=== PATIENT | male | born 1975 | race Hispanic/Latino ===

== ENCOUNTER 2016-06-28 13:39 | Emergency (ER) | payer OTHER ==
[2016-06-28 13:57] VITALS: BMI 23.0
[2016-06-28 13:58] VITALS: BP 116/84; PULSE 55; RESP 15; TEMP 99.2; O2SAT 100
[2016-06-28] MEDS ORDERED: Alum-Mag Hydrox-Simethicone Susp (30 mL) PO STA (14:01)
[2016-06-28] MEDS ORDERED: Sodium Chloride 0.9% 1,000 ML IV STA (14:03)
--- NOTE | 2016-06-28 14:16 | ED PDOC ---
Arrival/HPI - General Historian: Patient - History of Present Illness Time/Duration: Prior to Arrival, 4-6 hours Symptom Onset: Gradual Symptom Course: Unchanged Severity Level: Moderate <Geronimo Ruvalcaba - Last Filed: 06/28/16 14:10> <ArleneLeona Ankit - Last Filed: 06/28/16 16:57> - General Chief Complaint: GI Problem Time Seen by Provider: 06/28/16 13:56 - History of Present Illness Narrative History of Present Illness (Text): 06/28/16 14:11 This is a 41 year old male with history notable for chronic back and neck pain managed with oxycodone 15mg TID presenting with nausea, vomiting, and abdominal pain x 1 day. The patient states that he woke this morning with nausea and then began having bilious non-bloody emetic episodes. The patient reports abdominal pain secondary to the vomiting. The patient has been seen multiple times for the same complaint. The patient denies fever, chills, shest pain, SOB , changes in bowel/bladder, and extremity weakness/paresthesias. (Geronimo Ruvalcaba) Past Medical History - Provider Review Nursing Documentation Reviewed: Yes - Travel History Have you recently traveled outside [place] w/in the past 3 mons?: No - Past History Past History: No Previous - Infectious Disease Hx of Infectious Diseases: None - Cardiac Hx Cardiac Disorders: No - Pulmonary Hx Respiratory Disorders: No - Neurological Hx Neurological Disorder: No - HEENT Hx HEENT Disorder: No - Renal Hx Renal Disorder: No - Endocrine/Metabolic Hx Endocrine Disorders: No - Hematological/Oncological Hx Blood Disorders: No - Integumentary Hx Dermatological Disorder: No - Musculoskeletal/Rheumatological Hx Musculoskeletal Disorders: Yes Hx Back Pain: Yes Other/Comment: HERNIATED DISC, C 4 AND C5 NECK CRUSH , PINCH NERVE - Gastrointestinal Hx Gastrointestinal Disorders: No - Genitourinary/Gynecological Hx Genitourinary Disorders: No - Psychiatric Hx Psychophysiologic Disorder: No Hx Substance Use: Yes (marijuana) <Geronimo Ruvalcaba - Last Filed: 06/28/16 14:10> Family/Social History - Physician Review Nursing Documentation Reviewed: Yes Family/Social History: No Known Family HX Smoking Status: Former Smoker Hx Alcohol Use: No Hx Substance Use: Yes (marijuana) <Geronimo Ruvalcaba - Last Filed: 06/28/16 14:10> Allergies/Home Meds <Geronimo Ruvalcaba - Last Filed: 06/28/16 14:10> <Leona Jacobs - Last Filed: 06/28/16 16:57> Allergies/Adverse Reactions: Allergies No Known Allergies Allergy (Verified 06/28/16 13:57) Home Medications: Home Meds Medication Instructions Recorded Confirmed Oxycodone HCl [Oxycontin] 15 mg PO TID 04/22/16 06/28/16 Ondansetron ODT [Zofran ODT] 4 mg PO PRN PRN 06/28/16 06/28/16 Review of Systems - Physician Review All systems were reviewed & negative as marked: Yes - Review of Systems Constitutional: absent: Fatigue, Fevers Eyes: absent: Vision Changes, Photophobia ENT: absent: Hearing Changes, Tinnitus Respiratory: absent: SOB, Cough Cardiovascular: absent: Chest Pain, Palpitations Gastrointestinal: Abdominal Pain, Nausea, Vomiting. absent: Stool Changes, Constipation, Diarrhea, Appetite Changes, Hematochezia, Hematemesis Genitourinary Male: absent: Dysuria, Frequency Musculoskeletal: Back Pain, Neck Pain. absent: Arthralgias Skin: absent: Rash, Pruritis Neurological: absent: Headache, Dizziness Endocrine: absent: Diaphoresis Hemo/Lymphatic: absent: Adenopathy Psychiatric: absent: Anxiety <Geronimo Ruvalcaba - Last Filed: 06/28/16 14:10> Physical Exam Vital Signs Reviewed: Yes Temperature: Afebrile Blood Pressure: Normal Pulse: Regular Respiratory Rate: Normal Appearance: Positive for: Well-Appearing, Non-Toxic, Comfortable Pain Distress: None Mental Status: Positive for: Alert and Oriented X 3 - Systems Exam Head: Present: Atraumatic, Normocephalic Pupils: Present: PERRL Extroacular Muscles: Present: EOMI Conjunctiva: Present: Normal Mouth: Present: Moist Mucous Membranes. No: Drooling Neck: Present: Normal Range of Motion. No: Meningeal Signs, JVD, Lymphadenopathy Respiratory/Chest: Present: Clear to Auscultation, Good Air Exchange. No: Respiratory Distress, Accessory Muscle Use Cardiovascular: Present: Regular Rate and Rhythm, Normal S1, S2. No: Murmurs Abdomen: Present: Tenderness (diffuse epigastric), Normal Bowel Sounds. No: Distention, Peritoneal Signs, Rebound, Guarding, McBurney's Point Tender, Rovsing's Sign Present, Feeding Tubes, Ostomy Tubes, Mass/Organomegaly Back: Present: Normal Inspection. No: CVA Tenderness Upper Extremity: Present: Normal Inspection, Normal ROM, NORMAL PULSES, Neurovascularly Intact. No: Cyanosis, Edema, Deformity Lower Extremity: Present: Normal Inspection, NORMAL PULSES, Normal ROM, Neurovascularly Intact. No: Edema, CALF TENDERNESS Neurological: Present: GCS=15, CN II-XII Intact, Speech Normal Skin: Present: Warm, Dry, Normal Color. No: Rashes Psychiatric: Present: Alert, Oriented x 3 <Geronimo Ruvalcaba - Last Filed: 06/28/16 14:10> Vital Signs Temp Pulse Resp BP Pulse Ox 06/28/16 13:57 99.2 F 55 L 15 116/84 100 Medical Decision Making Re-evaluation Time: 16:12 Reassessment Condition: Re-examined, Improved - Lab Interpretations I have reviewed the lab results: Yes Interpretation: No clinic. lab abnormalty - RAD Interpretation Roller Helper: ED Physician, Radiologist <Geronimo Ruvalcaba - Last Filed: 06/28/16 14:10> - Lab Interpretations I have reviewed the lab results: Yes <Leona Jacobs - Last Filed: 06/28/16 16:57> ED Course and Treatment: 06/28/16 14:18 Impression: This is a 41 year old male with history notable for chronic back and neck pain managed with oxycodone 15mg TID presenting with nausea, vomiting, and abdominal pain x 1 day. The patient appears comfortable in bed. The patient reports multiple issues of the same complaint in the past. Differential: Intractible N/V GERD PUD Constipation Opioid Use Plan: 1L NS Bolus CBC, CMP, Mag, Phos, Lipase CT Abd/Pelv IV contrast Reglan 10mg Maalox 30ml Pepcid 20mg Prior Visits: 04/22/16- Abdominal pain, nausea, vomiting (resolution with reglan) 04/25/16- Abdominal pain, nausea, vomiting (resolution with reglan)- CT negative for acute abdominal pathology Progress Note: Patient seen and examined at the bedside. The patient appears clinically stable. The patient has a basin at bedside, no vomitus. The patient will be treated symptomatically with reglan, pepcid, and maalox. The patient is pending CT abd/pelv with IV contrast. 06/28/16 14:36 Stool guiac negative. 06/28/16 16:29 Case discussed in detail over the phone with Dr. Galan. He recommended discontinuing reglan and using Zofran for nausea control. He recommended liquid diet with advancement as tolerated and follow up in his office next week. These recommendations were relayed to the patient. He is agreeable with the plan. The patient has not vomited, but remains nauseated at this point. The patient states that he has an appointment with Dr. Alexis this evening at 17: 30. The patient understands the recommendations and summarizes his understanding. The patient will be given 4mg IV zofran for nausea. The patient is agreeable with the disscharge plan. The patient is medically stable for discharge. (Geronimo Ruvalcaba) Patient seen and examined with resident. Came up with treatment and disposition plan with resident. The patient is a 41 year old male who comes into the emergency department for evaluation of abdominal pain associated with nausea and vomiting. Additional HPI details as noted by the resident. He has been seen in ED multiple times for same. On phsyical examination the patient has tenderness with palpation in the epigastric region. Labs, Urinalysis and Abdomen/Pelvis CT ordered to rule out GERD vs. PUD vs. constipation. Will give patient Maalox, Pepcid, Reglan and IV Fluid for symptom management. CT negative. Labs grossly normal. Patient is tolerating po. Dr. Galan (GI) was consulted. Patient had schedule an appoint to see Dr. Galan in the office later today. Patient in agreement with plan to discharged home and will go directly to Dr. Galan's office. Patient is stable for discharge. Patient was instructed to follow up with Dr. Mckeon as scheduled or return if symptoms worsen or new concerning symptoms arise. (Leona Jacobs) - Lab Interpretations Lab Results: 06/28/16 14:24 06/28/16 14:24 Lab Results 06/28/16 14:24: WBC 6.0, RBC 5.16, Hgb 15.4, Hct 43.5, MCV 84.3, MCH 29.8, MCHC 35.4, RDW 12.7, Plt Count 303, MPV 9.6, Gran % 85.2 H, Lymph % (Auto) 11.4 L, [place] % (Auto) 2.9, Eos % (Auto) 0.0 L, Baso % (Auto) 0.5, Gran # 5.08, Lymph # 0.7 L, [place] # 0.2, Eos # 0.0, Baso # 0.03, Sodium 142, Potassium 4.1, Chloride 103, Carbon Dioxide 28, Anion Gap 15, BUN 12, Creatinine 0.8, Est GFR ( Amer) > 60, Est GFR (Non-Af Amer) > 60, Random Glucose 137 H, Calcium 10.4, Phosphorus 2.6, Magnesium 1.9, Total Bilirubin 0.9, AST 33, ALT 27, Alkaline Phosphatase 63, Total Protein 8.6 H, Albumin 5.0 H, Globulin 3.6, Albumin/ Globulin Ratio 1.4, Lipase 95 06/28/16 14:24 06/28/16 14:24 Lab Results 06/28/16 14:24: WBC 6.0, RBC 5.16, Hgb 15.4, Hct 43.5, MCV 84.3, MCH 29.8, MCHC 35.4, RDW 12.7, Plt Count 303, MPV 9.6, Gran % 85.2 H, Lymph % (Auto) 11.4 L, [place] % (Auto) 2.9, Eos % (Auto) 0.0 L, Baso % (Auto) 0.5, Gran # 5.08, Lymph # 0.7 L, [place] # 0.2, Eos # 0.0, Baso # 0.03, Sodium 142, Potassium 4.1, Chloride 103, Carbon Dioxide 28, Anion Gap 15, BUN 12, Creatinine 0.8, Est GFR ( Amer) > 60, Est GFR (Non-Af Amer) > 60, Random Glucose 137 H, Calcium 10.4, Phosphorus 2.6, Magnesium 1.9, Total Bilirubin 0.9, AST 33, ALT 27, Alkaline Phosphatase 63, Total Protein 8.6 H, Albumin 5.0 H, Globulin 3.6, Albumin/ Globulin Ratio 1.4, Lipase 95 (PegGeronimo) - RAD Interpretation Narrative RAD Interpretations (Text): 06/28/16 16:37 PROCEDURE: CT Abdomen and Pelvis with contrast HISTORY: abdominal pain and vomiting COMPARISON: None. TECHNIQUE: Contrast dose: 100 cc of Omni 350 Radiation dose: Total exam DLP = 363 mGy-cm. FINDINGS: LOWER THORAX: Unremarkable. LIVER: Unremarkable. No gross lesion or ductal dilatation. GALLBLADDER AND BILE DUCTS: Unremarkable. PANCREAS: Unremarkable. No gross lesion or ductal dilatation. SPLEEN: Unremarkable. ADRENALS: Unremarkable. No mass. KIDNEYS AND URETERS: Unremarkable. No hydronephrosis. No solid mass. VASCULATURE: Unremarkable. No aortic aneurysm. BOWEL: Unremarkable. No obstruction. No gross mural thickening. APPENDIX: Normal appendix. PERITONEUM: Unremarkable. No free fluid. No free air. LYMPH NODES: Unremarkable. No enlarged lymph nodes. BLADDER: Unremarkable. REPRODUCTIVE: Unremarkable. BONES: No acute fracture. OTHER FINDINGS: None. IMPRESSION: No acute intra-abdominal findings (Geronimo Ruvalcaba) Radiology Orders: 06/28/16 14:01 ABDOMEN & PELVIS [ABD & PELVIS IV CONTRAST ONLY] [CT] Stat - Medication Orders Current Medication Orders: Ondansetron HCl (Zofran Inj) 4 mg IVP Q4H PRN PRN Reason: Nausea/Vomiting Discontinued Medications Al Hydrox/Mg Hydrox/Simethicone (Maalox Plus 30 Ml) 30 ml PO STAT STA Stop: 06/28/16 14:02 Last Admin: 06/28/16 14:22 Dose: 30 ML Famotidine (Pepcid) 20 mg IVP STAT STA Stop: 06/28/16 14:02 Last Admin: 06/28/16 14:22 Dose: 20 MG IVP Administration Document 06/28/16 14:22 [facility] (Rec: 06/28/16 14:22 [id number]) Charges for Administration # of IVP Administrations 1 Sodium Chloride (Sodium Chloride 0.9%) 1,000 mls @ 999 mls/hr IV .Q1H1M STA Stop: 06/28/16 15:03 Last Admin: 06/28/16 14:22 Dose: 999 MLS/HR eMAR Start Stop Document 06/28/16 14:22 [facility] (Rec: 06/28/16 14:22 [id number]) Intravenous Solution Start Date 06/28/16 Start Time 14:22 Iohexol (Omnipaque 350 100 Ml) Confirm Administered Dose 350 mg .ROUTE .STK-MED ONE Stop: 06/28/16 15:13 Metoclopramide HCl (Reglan) 10 mg IVP STAT STA Stop: 06/28/16 14:02 Last Admin: 06/28/16 14:22 Dose: 10 MG IVP Administration Document 06/28/16 14:22 JACQUES (Rec: 06/28/16 14:22 [id number]) Charges for Administration # of IVP Administrations 1 Disposition/Present on Arrival - Present on Arrival Any Indicators Present on Arrival: No History of DVT/PE: No History of Uncontrolled Diabetes: No Urinary Catheter: No History of Decub. Ulcer: No History Surgical Site Infection Following: None - Disposition Have Diagnosis and Disposition been Completed?: Yes Disposition Time: 14:11 Patient Plan: Discharge <Geronimo Ruvalcaba - Last Filed: 06/28/16 14:10> <Leona Jacobs - Last Filed: 06/28/16 16:57> - Disposition Diagnosis: Vomiting, Abdominal pain, Constipation Disposition: HOME/ ROUTINE Patient Problems: Current Active Problems Problem Status Diagnosed Abdominal pain Acute Constipation Acute Vomiting Acute Condition: FAIR Discharge Instructions (ExitCare): Acute Nausea and Vomiting (ED), Constipation (ED) Print Language: [place]ET[place]ESE Additional Instructions: 1.) Follow up with Dr. Galan (appointment tonight at 5:30pm) and next week as directed 2.) Maintain adequate hydration 3.) Liquid diet and advance as tolerated to soft foods 4.) 6 small meals daily 5.) follow up with PMD following DC 6.) If symptoms return, please return to the ED for evaluation Referrals: PCP,NO [Primary Care Provider] - Follow up with primary Viviana Galan MD [Medical Doctor] - Follow up with primary
[2016-06-28 14:24] LABS: ADD MANUAL DIFF? NO
[2016-06-28 14:30] LABS: BASO # 0.03 K/mm3 (0.0-2.0); BASO % 0.5 % (0.0-3.0); GRAN # 5.08 (1.4-6.5); GRAN % 85.2 % (50.0-68.0); HEMATOCRIT 43.5 % (42.0-52.0); LYMPH # 0.7 (1.2-3.4); LYMPH % 11.4 % (22.0-35.0); MEAN CELL VOLUME 84.3 fL (80.0-105.0); MEAN CORPUSCULAR HEMOGLOBIN 29.8 pg (25.0-35.0); MEAN CORPUSCULAR HGB CONC 35.4 g/dl (31.0-37.0); MEAN PLATELET VOLUME 9.6 fl (7.0-11.0); MONO # 0.2 (0.1-0.6); MONO % 2.9 % (1.0-6.0); PLATELET COUNT 303 10^3/uL (120.0-450.0); RED CELL DISTRIBUTION WIDTH 12.7 % (11.5-14.5)
[2016-06-28 14:47] LABS: ALB/GLOB RATIO 1.4 (1.1-1.8); ALKALINE PHOSPHATASE 63 U/L (38-133); ALT/SGPT 27 U/L (7-56); AST/SGOT 33 U/L (15-59); BILIRUBIN,TOTAL 0.9 mg/dL (0.2-1.3); BLOOD UREA NITROGEN 12 mg/dL (7-21); CALCIUM 10.4 mg/dL (8.4-10.5); CARBON DIOXIDE 28 mmol/L (21-33); CHLORIDE 103 mmol/L (98-107); GFR AFRICAN-AMERICAN > 60; GLUCOSE,RANDOM 137 mg/dL (70-110); LIPASE 95 U/L (23-300); MAGNESIUM 1.9 mg/dL (1.7-2.2); PHOSPHOROUS 2.6 mg/dL (2.5-4.5); POTASSIUM 4.1 mmol/L (3.6-5.0); SODIUM 142 mmol/L (132-148); TOTAL PROTEIN 8.6 g/dL (5.8-8.3)
[2016-06-28] MEDS ORDERED: Iohexol 350 MG/100 ML VIAL ONE (15:12)
--- NOTE | 2016-06-28 15:53 | CT ---
PROCEDURE: CT Abdomen and Pelvis with contrast HISTORY: abdominal pain and vomiting COMPARISON: None. TECHNIQUE: Contrast dose: 100 cc of Omni 350 Radiation dose: Total exam DLP = 363 mGy-cm. FINDINGS: LOWER THORAX: Unremarkable. LIVER: Unremarkable. No gross lesion or ductal dilatation. GALLBLADDER AND BILE DUCTS: Unremarkable. PANCREAS: Unremarkable. No gross lesion or ductal dilatation. SPLEEN: Unremarkable. ADRENALS: Unremarkable. No mass. KIDNEYS AND URETERS: Unremarkable. No hydronephrosis. No solid mass. VASCULATURE: Unremarkable. No aortic aneurysm. BOWEL: Unremarkable. No obstruction. No gross mural thickening. APPENDIX: Normal appendix. PERITONEUM: Unremarkable. No free fluid. No free air. LYMPH NODES: Unremarkable. No enlarged lymph nodes. BLADDER: Unremarkable. REPRODUCTIVE: Unremarkable. BONES: No acute fracture. OTHER FINDINGS: None. IMPRESSION: No acute intra-abdominal findings
== END 2016-06-28 17:18 | disposition home or self-care (01) ==
LOC: ED 13:39
DX: K59.00 Constipation, unspecified (principal); R10.9 Unspecified abdominal pain; R11.10 Vomiting, unspecified
CPT/HCPCS: 74177; 80053; 83690; 83735; 84100; 85025; 96374; 96375; 99284; J2405; J2765; J7040; Q9967